=== PATIENT | female | born 1970 | race Caucasian/White ===

== ENCOUNTER 2021-09-13 01:08 | Day surgery (SDC) | payer OTHER, SELFPAY ==
[2021-09-01 13:44] VITALS: BMI 25.7
[2021-09-13 09:44] VITALS: BP 140/93; PULSE 111; RESP 16; TEMP 36.1; O2SAT 100; BMI 25.7
[2021-09-13] MEDS: LACTATED RINGERS 1,000 ML 150 ML IV CONT (09:51)
--- NOTE | 2021-09-13 10:24 | PM.HPGS ---
History of Present Illness History of Present Illness Consent: Risks, benefits, and alternatives have been discussed and questions answered. Patient agrees to proceed with procedure. Chief complaint: neoplasm screening Narrative: Masha Galicia is a 50 year old female here for first screening colonoscopy Review of Systems Constitutional: Constitutional: Denies headache(s) and Denies weakness Eyes: Eyes: Denies blurry vision ENT: Reports Normal hearing present, Denies headache(s) and Denies neck pain Cardiovascular: Cardiovascular: Denies chest pain and Denies dyspnea Respiratory: Respiratory: Denies dyspnea Gastrointestinal: Gastrointestinal: Reports no additional gastrointestinal complaints Genitourinary: Genitourinary: Denies dysuria Musculoskeletal: Musculoskeletal: Denies neck pain Integumentary/Breasts: Skin/Breast: Denies dry skin Neurologic: Reports Normal hearing present, Denies headache(s) and Denies weakness Psychiatric: Psychiatric: Denies anxiety Endocrine: Endocrine: Denies change in body appearance Hematologic/Lymphatic: Hematologic/Lymphatic: Denies easy bleeding Allergic/Immunologic: Allergic/Immunologic: Denies urticaria PMFSH Past Medical History Medical History Body mass index [BMI] 26.0-26.9, adult (07/13/16) Chronic GERD Depression Discoloration of skin of toe Dysfunction of both eustachian tubes DONOVAN (generalized anxiety disorder) History of alcohol abuse Impacted cerumen of right ear MDD (major depressive disorder), recurrent episode, moderate Menometrorrhagia Mood swings Nausea Night sweats RUQ abdominal pain Sleep apnea Snorings Tinnitus Family History Family History Grandparent Family history of throat cancer Other Family history of Alzheimer's disease Social History Social History (Updated 06/22/21 @ 10:28 by Jacqui Posadas) Social History: Smoking packs per day: 1 Smoking cigarettes per day: 20.0 Years smoked: 20 Smoking pack-years: 20.00 Smoking status: Current every day smoker Tobacco type: e-cigarettes/vaping Second hand tobacco smoke exposure: No Smoking end date: 03/20/12 Alcohol intake: current Drinks per week: 5 Alcohol use details: moderate amount Substance use: never Substance use type: does not use Living arrangements: with family Gender identity (if verbalized by the patient): Female Sexual Orientation (if Verbalized by the Patient): Straight or Heterosexual Spiritual care concerns: No Meds Home Medications and Allergies Home Medications Medication Instructions Recorded Confirmed Type biotin 1,000 mcg chewable tablet 1,000 mcg PO DAILY 09/01/21 09/01/21 History buspirone 5 mg tablet 5 mg PO BID PRN Anxiety 09/01/21 09/01/21 History multivitamin with minerals-folic 1 tablet PO DAILY 09/01/21 09/01/21 History acid 0.4 mg tablet Allergies Allergy/AdvReac Type Severity Reaction Status Date / Time No Known Allergies Allergy Verified 09/13/21 09:43 Vital Signs Vital Signs - 24 hr 09/13/21 09:44 Temperature 97 F L Pulse Rate 111 H Respiratory Rate 16 Blood Pressure 140/93 H Pulse Oximetry 100 Oxygen Delivery Room Air Exam Const: General: comfortable and no acute distress HENMT: General nose exam: Normal nares present Eyes: General: appearance normal, both eyes and all related structures Neck: Neck: no JVD Resp: Auscultation: clear to auscultation bilaterally Cardio: Rate: regular rate Rhythm: regular rhythm GI: Inspection: non-distended GI Palp: Yes Soft to palpation Skin: General skin exam: normal color Neuro: General: gait normal Speech: normal speech Extrem: General: normal to inspection Psych: Mental Status: mental status grossly normal Assessment and Plan Assessment and plan (1) Colon cancer screening: Code(s):
--- NOTE | 2021-09-13 10:28 | WPDANESEPPF ---
Anes - Initial Pre Proc Eval Procedure: Operation Date: 09/13/21 10:45 Proposed Procedures p Screening Colonoscopy - José Luis Soliz MD Date/Time: 09/13/21 10:28 Surgeon: José Luis Soliz MD Pre Op Diagnosis: neoplasm screening Patient Data Age: 50 Gender: F Height: 1.65 m Weight: 70.1 kg Last Vital Signs Temp 97 F L 09/13/21 09:44 Pulse 111 H 09/13/21 09:44 Resp 16 09/13/21 09:44 BP 140/93 H 09/13/21 09:44 Pulse Ox 100 09/13/21 09:44 O2 Del Method Room Air 09/13/21 09:44 Allergies Allergy/AdvReac Type Severity Reaction Status Date / Time No Known Allergies Allergy Verified 09/13/21 09:43 Home Medications Medication Instructions Recorded Confirmed Type biotin 1,000 mcg chewable tablet 1,000 mcg PO DAILY 09/01/21 09/01/21 History buspirone 5 mg tablet 5 mg PO BID PRN Anxiety 09/01/21 09/01/21 History multivitamin with minerals-folic 1 tablet PO DAILY 09/01/21 09/01/21 History acid 0.4 mg tablet Patient hx anesthesia problems: none Family hx anesthesia problems: none Results Review: All pre-operative results and documents have been reviewed as part of the pre-operative evaluation. [facility] Past Medical History Medical History Body mass index [BMI] 26.0-26.9, adult (07/13/16) Chronic GERD Depression Discoloration of skin of toe Dysfunction of both eustachian tubes DONOVAN (generalized anxiety disorder) History of alcohol abuse Impacted cerumen of right ear MDD (major depressive disorder), recurrent episode, moderate Menometrorrhagia Mood swings Nausea Night sweats RUQ abdominal pain Sleep apnea Snorings Tinnitus Family History Family History Grandparent Family history of throat cancer Other Family history of Alzheimer's disease Social History Social History (Updated 06/22/21 @ 10:28 by Jacqui Posadas) Social History: Smoking packs per day: 1 Smoking cigarettes per day: 20.0 Years smoked: 20 Smoking pack-years: 20.00 Smoking status: Current every day smoker Tobacco type: e-cigarettes/vaping Second hand tobacco smoke exposure: No Smoking end date: 03/20/12 Alcohol intake: current Drinks per week: 5 Alcohol use details: moderate amount Substance use: never Substance use type: does not use Living arrangements: with family Gender identity (if verbalized by the patient): Female Sexual Orientation (if Verbalized by the Patient): Straight or Heterosexual Spiritual care concerns: No Anes - Eval Final PreProcedure Day of Procedure 09/13/21 10:28 Patient weight: normal Heart: regular rate and rhythm Lungs: clear to auscultation Airway: Mallampati scale class II Neurological: alert and oriented Last oral intake: >/= 8 hours ASA classification: II Emergent: no Anesthetic plan: proceed Anesthesia type and monitoring: general GIVS and standard monitoring Results Review: All pre-operative results and documents have been reviewed as part of the pre-operative evaluation. Informed Consent: The patient's anesthetic plan and its attendant risks and benefits were discussed with the patient/family/POA. Questions were solicited and answers provided to the satisfaction of the patient/family/POA.
[2021-09-13 10:53] VITALS: BP 121/78; PULSE 96; RESP 17; O2SAT 100
[2021-09-13 11:03] VITALS: BP 131/85; PULSE 86; RESP 17; O2SAT 100
[2021-09-13 11:13] VITALS: BP 137/92; PULSE 83; RESP 15; O2SAT 100
== END 2021-09-13 11:17 | disposition home or self-care (01) ==
PROVIDERS: PCP Family Medicine; Visit Provider Internal Medicine Gastroenterology
PROC: 0DJD8ZZ Inspection of Lower Intestinal Tract, Via Natural or Artificial Opening Endoscopic (ICD-10-PCS; CPT 45378; principal; 2021-09-13 10:45)
DX: Z12.11 Encounter for screening for malignant neoplasm of colon (principal); D12.3 Benign neoplasm of transverse colon; D12.5 Benign neoplasm of sigmoid colon; K57.30 Diverticulosis of large intestine without perforation or abscess without bleeding; K64.8 Other hemorrhoids; F33.1 Major depressive disorder, recurrent, moderate; F41.1 Generalized anxiety disorder; F17.290 Nicotine dependence, other tobacco product, uncomplicated
CPT/HCPCS: 45385; 88305; J2704; J7120

== ENCOUNTER 2021-11-29 01:25 | Day surgery (SDC) | payer OTHER, SELFPAY ==
[2021-11-26 14:31] VITALS: BMI 24.2
--- NOTE | 2021-11-26 14:36 | PC.NURSE ---
Report to the Outpatient Waiting Room, entrance under the green pavilion located off [facility], at time _1000_ on date _[id number]_. OR Time: _1200_. Time changes happen often and if your time is changed the preop area will call you the afternoon before. - You and your visitor will be asked to self-screen and do not enter if you have any COVID symptoms. - Only one visitor and NO children visitors are allowed at this time. - The patient visitor is requested to leave or wait in car when not with patient due to restrictions. - A mask is required within the hospital. Patients may have clear liquids (water, carbonated beverages, clear teas, apple juice) until 3 hours prior to surgery with a maximum of 20 ounces. - No food from midnight until time of surgery Take the following medications with a SIP of water the morning of surgery: ___Clonazepam if needed. Medications to discontinue per physician ___Multivitamin and Biotin Date to take last dose__Stop today. Please no make-up, nail kenyan, hairspray, perfume, deodorant, or body powder the day of surgery. No jewelry (including any body piercings) or valuables the day of surgery, leave them at home. Please take a shower or bath the night before, or the morning of, surgery with an antibacterial soap. Wear comfortable, loose fitting clothing. - Jewelry must be removed prior to entering the operating room. Rings and piercings that are not removed may be cut off. - The hospital will not accept responsibility for valuables. - Please leave all valuables, including medications, at home the day of surgery. If you are going home after surgery, a licensed mobile lounge driver or operator must drive you home. - NO public transportation without another adult. - We recommend that an adult stay with you for 24 hours following discharge. - We also recommend that you do not drive, make important decision, drink alcoholic beverages, or take any drugs that were not prescribed by your health care provider for at least 24 hours after your discharge time. Follow any additional instructions given to you from your surgeon. If you or anyone in your household have experienced Covid symptoms in the past week, please notify your surgeon or the nurse liaison at the phone number below for possible testing. Telephone instructions given to _Patient___and asked if any additional questions and then verbalized understanding. Patient advised to call surgeon office or pre surgery nurse liaison [phone] if any additional questions.
[2021-11-29 10:30] VITALS: BP 119/74; PULSE 82; RESP 20; TEMP 36.5; O2SAT 97
[2021-11-29] MEDS: ACETAMINOPHEN 500 MG TABLET 1000 MG PO (10:48)
[2021-11-29] MEDS: LACTATED RINGERS 1,000 ML 30 ML IV CONT ×2 (10:55→12:53)
--- NOTE | 2021-11-29 11:21 | WPDANESEPPF ---
Anes - Initial Pre Proc Eval Procedure: Operation Date: 11/29/21 12:00 Proposed Procedures p Hysteroscopy, with Eleanor Endometrial Ablation - Jeannette Mijares MD Date/Time: 11/29/21 11:21 Surgeon: Jeannette Mijares MD Pre Op Diagnosis: menometrorrhagia Patient Data Age: 51 Gender: F Height: 1.68 m Weight: 68.5 kg Last Vital Signs Temp 36.5 C 11/29/21 10:30 Pulse 82 11/29/21 10:30 Resp 20 11/29/21 10:30 BP 119/74 11/29/21 10:30 Pulse Ox 97 11/29/21 10:30 O2 Del Method Room Air 11/29/21 10:30 Allergies Allergy/AdvReac Type Severity Reaction Status Date / Time No Known Allergies Allergy Verified 11/26/21 14:30 Home Medications Medication Instructions Recorded Confirmed Type biotin 1,000 mcg chewable tablet 1,000 mcg PO DAILY 09/01/21 11/29/21 History buspirone 5 mg tablet 5 mg PO BID PRN Anxiety 09/01/21 11/26/21 History multivitamin with minerals-folic 1 tablet PO DAILY 09/01/21 11/29/21 History acid 0.4 mg tablet Patient hx anesthesia problems: none Family hx anesthesia problems: none Results Review: All pre-operative results and documents have been reviewed as part of the pre-operative evaluation. [facility] Past Medical History Medical History (Updated 06/22/21 @ 11:43 by Jacqui Landa NP) Body mass index [BMI] 26.0-26.9, adult (07/13/16) Chronic GERD Depression Discoloration of skin of toe Dysfunction of both eustachian tubes DONOVAN (generalized anxiety disorder) History of alcohol abuse Impacted cerumen of right ear MDD (major depressive disorder), recurrent episode, moderate Menometrorrhagia Mood swings Nausea Night sweats RUQ abdominal pain Sleep apnea Snorings Tinnitus Surgical History Surgical History (Updated 11/29/21 @ 11:26 by Chuy Joe MD) H/O arthroscopic knee surgery H/O colonoscopy History of section Family History Family History Grandparent Family history of throat cancer Other Family history of Alzheimer's disease Social History Social History Social History: Smoking packs per day: 1 Smoking cigarettes per day: 20.0 Years smoked: 15 Smoking pack-years: 15.00 Smoking status: Former smoker Tobacco type: e-cigarettes/vaping Second hand tobacco smoke exposure: No Smoking end date: 11/26/13 Alcohol intake: current Drinks per week: 7 Alcohol use details: moderate amount Substance use: never Substance use type: does not use Living arrangements: with family Gender identity (if verbalized by the patient): Female Sexual Orientation (if Verbalized by the Patient): Straight or Heterosexual Spiritual care concerns: No Anes - Eval Final PreProcedure Day of Procedure 11/29/21 11:21 Patient weight: normal Heart: regular rate and rhythm Lungs: clear to auscultation Airway: Mallampati scale class II Neurological: alert and oriented Last oral intake: >/= 8 hours ASA classification: II Emergent: no Anesthetic plan: proceed Anesthesia type and monitoring: general GIVS and standard monitoring Results Review: All pre-operative results and documents have been reviewed as part of the pre-operative evaluation. Informed Consent: The patient's anesthetic plan and its attendant risks and benefits were discussed with the patient/family/POA. Questions were solicited and answers provided to the satisfaction of the patient/family/POA.
--- NOTE | 2021-11-29 11:52 | PM.IMHP ---
H&P: HPI History of Present Illness Date/Time: 11/29/21 11:52 Chief Complaint: menometrorrhagia Narrative: Deidre is a 51yo who presents for HSC and endometrial ablation. She has had menometrorrhagia for years. EMB last january was benign. after a d and C had irritated vagina, though she tolerated betadine with her EMB. Review of Systems Review of Systems: All systems reviewed & are unremarkable except as noted in HPI and below PMFSH Past Medical History Medical History (Updated 11/29/21 @ 11:54 by Jeannette Mijares MD) Body mass index [BMI] 26.0-26.9, adult (07/13/16) Chronic GERD Depression Discoloration of skin of toe Dysfunction of both eustachian tubes DONOVAN (generalized anxiety disorder) History of alcohol abuse Impacted cerumen of right ear MDD (major depressive disorder), recurrent episode, moderate Menometrorrhagia Mood swings Nausea Night sweats RUQ abdominal pain Sleep apnea Snorings Tinnitus Surgical History Surgical History (Updated 11/29/21 @ 11:26 by Chuy Joe MD) H/O arthroscopic knee surgery H/O colonoscopy History of section Family History Family History Grandparent Family history of throat cancer Other Family history of Alzheimer's disease Social History Social History Social History: Smoking packs per day: 1 Smoking cigarettes per day: 20.0 Years smoked: 15 Smoking pack-years: 15.00 Smoking status: Former smoker Tobacco type: e-cigarettes/vaping Second hand tobacco smoke exposure: No Smoking end date: 11/26/13 Alcohol intake: current Drinks per week: 7 Alcohol use details: moderate amount Substance use: never Substance use type: does not use Living arrangements: with family Gender identity (if verbalized by the patient): Female Sexual Orientation (if Verbalized by the Patient): Straight or Heterosexual Spiritual care concerns: No Meds Home Medications and Allergies Home Medications Medication Instructions Recorded Confirmed Type biotin 1,000 mcg chewable tablet 1,000 mcg PO DAILY 09/01/21 11/29/21 History buspirone 5 mg tablet 5 mg PO BID PRN Anxiety 09/01/21 11/26/21 History multivitamin with minerals-folic 1 tablet PO DAILY 09/01/21 11/29/21 History acid 0.4 mg tablet Allergies Allergy/AdvReac Type Severity Reaction Status Date / Time No Known Allergies Allergy Verified 11/26/21 14:30 Vital Signs Vital Signs - 24 hr 11/29/21 10:30 Temperature 97.7 F Pulse Rate 82 Respiratory Rate 20 Blood Pressure 119/74 Pulse Oximetry 97 Oxygen Delivery Room Air Exam Const: General: no acute distress Resp: Effort & Inspection: normal respiratory effort Auscultation: clear to auscultation bilaterally Cardio: Rate: regular rate Rhythm: regular rhythm GI: GI Palp: Yes Soft to palpation Extrem: General: normal to inspection Assessment and Plan Assessment and plan (1) Menometrorrhagia: Code(s): N92.1 - Excessive and frequent menstruation with irregular cycle Status: Acute Plan will proceed with HSC and endometrial ablation. consented to RBA, questions answered will irrigate vagina after to prevent prior irritation.
--- NOTE | 2021-11-29 11:55 | WPDHPUPDATE1 ---
History and Physical Update Update Date/Time: 11/29/21 11:55 History and Physical has been reviewed, including an updated exam of the patient. There are NO changes in the patient's condition. Risks, benefits, and alternatives have been discussed and questions answered. Patient agrees to proceed with procedure.
[2021-11-29] MEDS: BUPIVACAINE/EPINEPHRINE 0.25% 50 ML VIAL 10 ML INFILTRATE (12:24)
--- NOTE | 2021-11-29 12:52 | P.OP_ITS ---
Procedure Note - Detailed Date of Procedure 11/29/21 Pre-op Diagnosis menometrorrhagia Post-op Diagnosis Same Procedure Performed hysteroscopy, attempted eleanor endometrial ablation Surgeon Jeannette Mijares MD Double Ending Machine Operator none Anesthesia MAC and Local Indications menorrhagia and/or menometrorrhagia Findings Uterus sounded to 8cm. Cervix was 4.5cm, giving cavity length of 3.5cm. Cavity width was just under 4cm. Device was unable to open fully in her small uterus and we were thus unable to get a seal at the internal os. The endometrial ablation was terminated. Description of Procedure The patient was taken to the operating room and placed in supine position. She received MAC anesthesia and was placed in dorsal lithotomy position in [facility]. A speculum was placed and the anterior lip of the cervix was grasped with a single tooth tenaculum. A paracervical block of 10cc of 0.25% marcaine with epinephrine was done. The cervix sounded to 8cm and the cervix was 4.5cm long, giving a uterine cavity length of 3.5cm. The Eleanor device was set to 4cm. The cervix was sequentially dilated to an 8 Kinjal. The hysteroscope was inserted and the cavity visualized and appeared to be normal, though narrow. The scope was removed and the Eleanor device inserted through the cervix easily. The width of the uterine cavity was just at or below 4cm. The balloon was inflated to attain a cervical seal, but this was not successful despite multiple attempts at inflating the balloon. The device was removed. The hysteroscope was reinserted and the cavity appeared normal. No uterine perforations were noted. The scope was once again removed. The tenaculum was removed and the cervix was made hemostatic with pressure. The speculum was removed. The patient was awakened from anesthesia and taken to the recovery room in stable condition. Fluid deficit 190cc. Estimated Blood Loss 10 Drains No Packing No Pathology None sent Complications No immediate complications Condition Stable Disposition Same day
[2021-11-29 12:53] VITALS: BP 105/63; PULSE 90; RESP 16; O2SAT 100
--- NOTE | 2021-11-29 12:55 | SUR.OPER ---
all rings checked post op and intact.
[2021-11-29 13:15] VITALS: BP 138/86; PULSE 78; RESP 16; O2SAT 99
[2021-11-29 13:45] VITALS: BP 130/84; PULSE 67; RESP 16
== END 2021-11-29 14:02 | disposition home or self-care (01) ==
PROVIDERS: PCP Family Medicine; Visit Provider Obstetrics & Gynecology
PROC: 0U5B8ZZ Destruction of Endometrium, Via Natural or Artificial Opening Endoscopic (ICD-10-PCS; CPT 58563; principal; 2021-11-29 12:00)
DX: N92.1 Excessive and frequent menstruation with irregular cycle (principal); F41.1 Generalized anxiety disorder; F33.1 Major depressive disorder, recurrent, moderate; Z87.891 Personal history of nicotine dependence
CPT/HCPCS: 58563; A9270; J1100; J2250; J2405; J2704; J3010; J7030; J7120

== ENCOUNTER 2024-06-22 08:28 | Outpatient (CLI) | payer BC, SELFPAY ==
--- NOTE | ~2024-06-22 | US_ITS ---
Abdominal Sonogram: Real-time sonographic imaging of the abdomen was performed. Clinical History: Abnormal findings of blood chemistry Findings: The liver appears echogenic, with no evidence of mass lesion or bile duct dilatation. Main portal vein demonstrates normal direction of flow. The spleen is normal in size without evidence of focal lesion. The gallbladder is well distended, and appears normal with no evidence of gallstone or wall thickening. The common bile duct measures 3 mm. The visualized pancreas, aorta, and IVC are un remarkable. The right kidney measures 12.8 cm in length and the left kidney measures 11.6 cm. There is no hydronephrosis or renal calculus. Impression: Diffuse fatty infiltration of the liver. Reviewed, dictated and finalized at location M. Impression: Diffuse fatty infiltration of the liver.
== END 2024-06-22 08:29 | disposition home or self-care (01) ==
PROVIDERS: PCP Family Medicine; Visit Provider Physician Assistant
DX: R79.89 Other specified abnormal findings of blood chemistry (principal); K76.0 Fatty (change of) liver, not elsewhere classified
CPT/HCPCS: 76700

== ENCOUNTER 2024-07-09 13:31 | Outpatient (CLI) | payer BC, SELFPAY ==
--- NOTE | ~2024-07-09 | MM_ITS ---
EXAMINATION: MM screening tho BI w romelia HISTORY: Screening TECHNIQUE: Craniocaudal and mediolateral oblique 3-D tomosynthesis images were obtained and synthetic 2-D images were generated. CAD analysis was submitted and interpreted. COMPARISON: Comparison to multiple prior studies sequentially, with oldest reviewed study dated 12/20. BREAST PARENCHYMAL COMPOSITION: Dense: The breasts are extremely dense, which lowers the sensitivity of mammography. FINDINGS: There is no evidence of suspicious mass, calcification, or architectural distortion to sugg est malignancy in either breast. There has been no suspicious interval change. IMPRESSION: 1. No mammographic evidence of malignancy. 2. Recommend routine screening mammography in one year. BI-RADS Category 1: Negative Reviewed, dictated and finalized at location A.
== END 2024-07-09 13:32 | disposition home or self-care (01) ==
LOC: MICIMG 13:31
PROVIDERS: PCP Family Medicine; Visit Provider Physician Assistant
DX: Z12.31 Encounter for screening mammogram for malignant neoplasm of breast (principal)
CPT/HCPCS: 77063; 77067

== ENCOUNTER 2025-01-27 00:25 | Day surgery (SDC) | payer BC, OTHER, SELFPAY ==
[2024-07-16 13:39] VITALS: BMI 27.9
--- OUTSIDE RECORDS SUMMARY | 2024-07-26 00:27 | XMS_ITS | Data Portability ---
Author Organization [facility] [place] Address [address] [place] [address] Care Team Providers Care Executive Casino Host Name Role Phone ELIZABETH BRADLEY Primary Care Provider Assessment Encounter Date Assessment Date Assessment LastModified by Organization Details LastModified Time 02/10/2021 02/10/2021 EMB done, will call with results continue iron for anemia. DIscussed US results- no clear etiology of bleeding. likely anovulatory bleeding. if episodes continue, may discuss options of mirena vs ablation. would avoid estrogen with her relatively uncontrolled hypertension. [email or web address] Not available 02/10/2021 17:16:06 09/15/2021 09/15/2021 healthy female exam patient declines std testing pap due 2023 mammogram ordered and encouraged discussed mgt options for bleeding. already had benign EMB. desires ablation after summer. The indications, risks, and benefits and alternatives to surgery were discussed with the patient. I explained that the risks include, but are not limited to: bleeding and possible need for transfusion, infection, damage to adjacent structures including the bladder, ureters, bowel, or major vessels, need for additional surgery, and risks from anesthesia. I explained that there is also a chance that the symptoms may not improve after surgical intervention. She voices understanding and wishes to proceed. Will schedule in Nov. Will do in OR due to difficult time with EMB in office. FU 1 year or prn [email or web address] Not available 09/15/2021 13:27:33 11/26/2021 11/26/2021 Again discussed RBA of ablation, consented discussed procedure, recovery describes irritation of vagina after last procedure, did tolerate betadine at EMB. will irrigate vagina after procedure. strongly encouraged to schedule mammo [email or web address] Not available 11/26/2021 14:01:05 Plan of Treatment Reminders Order Date Submit Date Provider Last Modified By Organization Details Last Modified Time Details Appointments None recorded. Lab None recorded. Referral None recorded. Procedures None recorded. Surgeries hysteroscop y, with endometrial ablation (SURG) 2021 022 [facility] Surgery [place], [address], [place], [address], 14:19:00 Imaging US, pelvis 2020 [address], [address], [place], [address], 11:42:28 US, transvagina l [address], [address], [place], [address], 11:42:29 Medication Orders None recorded. Patient TargetsNo targets recorded. Patient InstructionsNo instructions recorded. Reason for Referral None Reported. Results Created Date Observation Date Name Description Value Unit Range Abnormal Flag Note LastModifiedBy Organization Detail LastModifiedTime 02/11/20 21 02/10/2021 SURGI [facility] PATHO LOGY surgical pathology SEE RESULT S BELOW CASE REPOR T: Surgi evan Patho logy Repor t Case: [id number] Autho kyle condon Provi joseph: Jeannette Combs MD Colle cted: 02/10 1644 Order ing Locat ion: [place] [facility] Recei danielle: 02/11 1030 Patho logis t: Osvaldo Carey MD Speci men: Endom etriu m, endom etriu m FINAL DIAGN OSIS: Endom etriu m, biops y: -Few fragm ents of endoc ervic al and ectoc ervic al tissu e witho ut diagn ostic abnor malit y. -No endom etria l tissu e prese nt for exami natio n. Elect dylan rodriguez by Osvaldo Carey MD on 02/12 at 2:35 PM ----- ----- ----- ----- ----- ----- ----- ----- ----- ----- ----- ----- ----- ----- ----- ----- ----- ---- CLINI EVAN INFOR MATIO N: not provi ded MICRO SCOPI C DESCR IPTIO N: A micro scopi c exami natio n was perfo rmed. GROSS DESCR IPTIO N: A. Daniel pérez. The speci men is label ed with the patie nt's name, bessie sin cs and EMB . Recei danielle in forma linda is a 2.0 x 2.0 x 0.2 [address] of mucus and dark red tissu e. The entir e speci men is submi tted in one casse tte. Gross ed by Giana jon Not Available [facility] (Lab) [address], [place], [address], 02/12/2021 15:37:05 02/02/20 21 02/01/2021 US, pelvi s No observ ation record ed. [email or web address] [place] [address], [place], [address], 02/01/2021 11:13:21 02/02/20 21 02/01/2021 US, trans vagin al No observ ation record ed. [email or web address] [place] [address], [place], [address], 02/01/2021 11:13:10 02/02/20 21 02/01/2021 US, pelvi s No observ ation record ed. bernadette Ramos [address], [place], [address], 02/10/2021 19:06:57 Result Notes None recorded. Problems Name Problem SNOMED Code Status Onset Date Resolution Date Notes Provider Name and Address Organization Details Recorded Time Dysfunct ional uterine bleeding Completed 201205/27/2020 Other disorder s of menstrua tion and other abnormal bleeding from female genital tract;Re corded Elsewher e: No Locat ion: [facility] S ource: EHR Sew[employer] Line Baler mario alberto: N Practi ce ID: 0001 Max lable Time: 08:15:00 AM Dasha Gary [facility], [facility] 15:40:45 Speciali zed medical examinat ion Completed 201005/27/2020 Routine gynecolo gical examinat ion;Prac luciana ID: 0001 Dasha Gary [facility] 15:41:34 Screenin g for malignan t neoplasm of cervix Completed 201005/27/2020 Pap Smear;Pr actice ID: 0001 Dasha Gary [facility], [facility] 15:41:19 Menstrua tion finding Completed 201105/27/2020 Menorrha emma Excessiv e Menstrua tion;Pra ctice ID: 0001 Dasha Gary [facility], [facility] 15:40:52 Insertio n of intraute rine contrace ptive device Completed 201105/27/2020 INSERTIO N OF IUD;Prac luciana ID: 0001 Dasha Gary [facility], [facility] 15:40:50 Pregnanc y test negative [id number] Completed 201205/27/2020 Negative Pregnanc y Test;Pra ctice ID: 0001 Dasha tan, [facility] 15:40:56 Anemia 587538678 Active 2012 Anemia, unspecif ied;Prac luciana ID: 0001 Not Available [facility] 12/21/202 0 17:25:14 Premenop ausal menorrha emma Completed 201205/27/2020 Premenop ausal menorrha emma;Prac luciana ID: 0001 Dasha tan, [facility] 15:41:16 Stenosis of cervix 25354838 Completed 201205/27/2020 Strictur e and stenosis of cervix;P ractice ID: 0001 Dasha tan, [facility] 15:41:31 Vaginiti s and vulvovag initis Completed 201205/27/2020 Vaginiti s and vulvovag initis, unspecif ied;Prac luciana ID: 0001 Dasha tan, [facility] 15:41:[address] Concept Completed 201805/27/2020 Encntr for disability rater exam (general ) (routine ) w/o abn findings ;Recorde d Elsewher e: No Locat ion: [facility] S ource: EHR [employer] mario alberto: N Pauline ce ID: 0001 Max lable Time: 08:30:00 AM Dasha Gary [facility] 15:41:27 Speciali zed medical examinat ion Completed 201112/08/2011 Gynecolo gical Examinat ion;Brennan rded Elsewher e: No Locat ion: [facility] S ource: E[facility] [employer] mario alberto: N Pauline ce ID: 0001 Max lable Time: 02:30:00 PM Dasha Gary [facility] 15:41:34 Pregnanc y test negative [id number] Completed 201101/03/2012 Pregnanc y examinat ion or test, negative result;R ecorded Elsewher e: No Locat ion: [facility] S ource: EHR [employer] mario alberto: N Pauline ce ID: 0001 Max lable Time: 02:00:00 PM Dasha tan, [facility] 15:40:56 Screenin g for malignan t neoplasm of rectum Completed 201505/27/2020 Encounte r for screenin g for malignan t neoplasm of rectum;R ecorded Elsewher e: No Locat ion: [facility] S ource: EHR [employer] mario alberto: N Roxanneti ce ID: 0001 Max lable Time: 09:45:00 AM Dasha tan, [facility] 15:41:[address] Concept Completed 201505/27/2020 Anxiety disorder , unspecif ied;Brennan rded Elsewher e: No Locat ion: [facility] S ource: EHR [employer] mario alberto: N Roxanneti ce ID: 0001 Max lable Time: 09:45:00 AM Dasha Gary [facility], [facility] 15:41:[address] Concept Completed 201505/27/2020 Encntr for general adult medical exam w/o abnormal findings ;Recorde d Elsewher e: No Locat ion: [facility] S ource: EHR [employer] mario alberto: N Roxanneti ce ID: 0001 Max lable Time: 09:45:00 AM Dasha tan [facility] 15:41:25 Evaluati on finding Completed 201705/27/2020 Hematuri a, unspecif ied;Brennan rded Elsewher e: No Locat ion: [facility] S ource: [facility] mario alberto: N Roxanneti ce ID: 0001 Max lable Time: 10:30:00 AM Dasha tan [facility] 15:40:48 Adult health examinat ion Completed 201305/27/2020 ROUTINE MEDICAL EXAM;Rec orded Elsewher e: No Locat ion: Rabia foley [facility] S ource: EHR [employer] mario alberto: N Practi ce ID: 0001 Max lable Time: 10:30:00 AM Dasha tan [facility] 15:40:25 Urinary tract infectio us disease 46630088 Completed 201405/27/2020 Urinary tract infectio n, site not specifie d;Record ed Elsewher e: No [facility]at [facility] N Practi ce ID: 0001 Max lable Time: 01:15:00 PM Dasha tan [facility] 15:41:38 Screenin g for malignan t neoplasm of cervix Completed 201112/08/2011 Screenin g for malignan t neoplasm s of the cervix;R ecorded Elsewher e: No [facility]at [facility] N Practi ce ID: 0001 Max lable Time: 02:30:00 PM Dasha tan [facility] 15:41:19 Syphilis test finding 734112076 Completed 201805/27/2020 Encounte r for STD screenin g;Record ed Elsewher e: No [facility]: N Practi ce ID: 0001 Max lable Time: 02:30:00 PM Dasha tan [facility] 15:41:36 Alopecia 44977442 Completed 201301/20/2021 Hair loss disorder ;Recorde d Elsewher e: No Locat ion: [facility]: N Practi ce ID: 0001 Max lable Time: 10:30:00 AM Jeannette Mijares MD [address], [place], [address], [place] [facility] 14:32:45 Anxiety 53249819 Active 2020 Dasha tan [facility] 15:41:49 Herpes simplex 97786147 Active 2020 Dahsa tan [facility] 15:41:54 Problem Notes None recorded. Procedures Surgical History Date Name Laterality Status Provider Name and Address Organization Details Recorded Time 11/30/19 22 HYSTEROSCOPY, WITH ENDOMETRIAL ABLATION (SURG) completed Virginia Rodriguez [facility] 11/30/2021 10:58:48 09/14/19 22 Date of Last Colonoscopy completed Lexii Mei [facility] 09/15/2021 12:34:37 02/11/20 21 Endometrial Biopsy completed Jeannette Mijares MD [facility] [address], [place], [address], [facility] 02/10/2021 17:14:26 05/28/19 21 Date of Last Pap Smear completed Dasha Gary [facility] 05/27/2020 15:42:16 03/20/19 14 Knee arthroscopy/surg home completed Dasha Gary [facility] 05/27/2020 09:14:18 03/20/19 13 Hysteroscopy completed Dasha Gary [facility] 05/27/2020 09:13:47 10/21/19 05 section completed Dasha Gary [facility] 05/27/2020 15:45:40 03/20/19 05 ligation of bilateral fallopian tubes completed Dasha Gary [facility] 05/27/2020 09:13:26 05/05/19 03 section completed Dasha Gary [facility] 05/27/2020 15:45:51 Imaging Results Imaging Date Name Status LastModified by Organization Details LastModified Time 02/01/2021 US, pelvis completed [email or web address] [place] [address], [place], [address], 02/01/2021 11:13:21 02/01/2021 US, transvaginal completed [email or web address] [facility] [address], [place], [address], 02/01/2021 11:13:10 02/01/2021 US, pelvis completed [email or web address] Rachel [address], [place], [address], 02/10/2021 19:06:57 Procedure Notes None recorded. Medical Equipment None Reported. Allergies No known drug allergies Medications Name Sig Start Date Stop Date Status Note LastModified by Organization Details LastModified Time buspirone 5 mg tablet TAKE 1 TABLET BY MOUTH TWICE DAILY 09/15 completed Not Available Not Available Not Available metronida zole 0.75 % (37.5 mg/5 gram) vaginal gel INSERT 1 APPLICAT ORFUL VAGINALL Y ONCE DAILY AT BEDTIME FOR 5 DAYS 01/20 completed Not Available Not Available Not Available Zithromax Z-Dariel 250 mg tablet take 2 tablet (500MG) by oral route every day for 1 day then 1 tablet (250 mg) by oral route once daily for 4 days 01/12 completed Prescrib ed Elsewher e: No Locat ion: Rabia f[facility] Pooja odify By: elly Encount er DateTime : 01/09/20 13 11:35:02 AM Not Available Not Available Not Available Macrobid 100 mg capsule take 1 capsule by oral route every 12 hours with food 06/08 completed Prescrib ed Elsewher e: No [facility] [place] P[facility] odify By: jamie Lai r DateTime : 02/05/20 01:15:00 PM Not Available Not Available Not Available terbinafi ne HCl 250 mg tablet TK 1 T PO D 05/27 completed Not Available Not Available Not Available Zoloft 50 mg tablet take 1 tablet by oral route every day 06/082019 completed Prescrib ed Elsewher e: No Locat ion: [facility] odify By: jamie Lai r DateTime : 02/05/20 15 01:15:00 PM Not Available Not Available Not Available Prozac 20 mg capsule take 1 capsule (20MG) by oral route every day in the morning 02/20 completed Prescrib ed Elsewher e: No Locat ion: [facility] odify By: citlaly crane DateTime : 02/21/20 13 09:32:49 AM Not Available Not Available Not Available Cipro 500 mg tablet take 1 tablet by oral route every 12 hours 06/08 completed Prescrib ed Elsewher e: No Locat ion: [facility] odify By: jamie Lai r DateTime : 07/04/19 18 10:30:00 AM Not Available Not Available Not Available buspirone 7.5 mg tablet take 1 tablet by oral route 2 times every day 05/27 completed Prescrib ed Elsewher e: No Locat ion: [facility] odify By: [email or web address] ndt Enco unter DateTime : 06/09/19 19 08:30:00 AM Not Available Not Available Not Available hydroxyzi ne HCl 25 mg tablet TAKE 1 TABLET BY MOUTH TWICE DAILY NEEDED FOR NAUSEA OR VOMITING 09/15 completed Not Available Not Available Not Available Paxil 10 mg tablet take 1 tablet by oral route every day 02/20 completed Prescrib ed Elsewher e: No Locat ion: [facility] odify By: kristina Foley ncounter DateTime : 02/20/20 13 01:30:00 PM Not Available Not Available Not Available multivita min capsule take 1 capsule by oral route every day 05/27 completed Prescrib ed Elsewher e: Yes Loca tion: [facility] odify By: citlaly crane DateTime : 02/21/20 14 10:30:00 AM Not Available Not Available Not Available Poly-Iron 150 mg iron capsule TAKE 1 CAPSULE BY MOUTH EVERY DAY 09/15 completed Not Available Not Available Not Available 04/08 (28) 1 mg-20 mcg (21)/75 mg (7) tablet 05/27 completed Not Available Not Available Not Available hydroxyzi ne HCl 05/27 completed Not Available Not Available Not Available Lysteda 650 mg tablet take 2 tablet (1300MG) by oral route 3 times every day during menses 02/20 completed Prescrib ed Elsewher e: No Locat ion: [facility] odify By: citlaly crane DateTime : 08/08/19 13 10:00:00 AM Not Available Not Available Not Available Linzess 290 mcg capsule TAKE 1 CAPSULE BY MOUTH DAILY 09/15 completed Not Available Not Available Not Available biotin 1 mg capsule 09/15 completed Prescrib ed Elsewher e: Yes Loca tion: [facility] odify By: citlaly crane DateTime : 02/21/20 14 10:30:00 AM Not Available Not Available Not Available BinaxNOW COVID-19 Ag Self Test kit TEST DIRECTED 09/15 completed Not Available Not Available Not Available Vitals Date Recorded Body height Body mass index (BMI) Body weight Systolic blood pressure Diastolic blood pressure Systolic blood pressure Diastolic blood pressure Provider Name and Address Organization Details Last Updated DateTime 1 166.37 cm 26.5 kg/m2 21262.9 6 g 150 mm[Hg] 90 mm[Hg] 138 mm[Hg] 80 mm[Hg] [facility] 1 14:52:37 Date Recorded Body height Body mass index (BMI) Body weight Systolic blood pressure Diastolic blood pressure Provider Name and Address Organization Details Last Updated DateTime 09/15/2021 166.37 cm 25.1 kg/m2 12296.63 g 114 mm[Hg] 76 mm[Hg] [facility] 2 12:33:42 Date Recorded Body height Body mass index (BMI) Body weight Systolic blood pressure Diastolic blood pressure Provider Name and Address Organization Details Last Updated DateTime 11/26/2021 166.37 cm 24.6 kg/m2 56455.86 g 138 mm[Hg] 88 mm[Hg] Lexii Mei [facility] 10:31:02 Social History Question Answer Notes LastModified by Organizat ion Details LastModified Time Do You Have An Advance Directive? No [email or web address] Information n ot available 05/27/2020 What Is Your Level Of Alcohol Consumption? Occasional [email or web address] Information not available 05/27/2020 If You Are , What Was Your Level Of Alcohol Consumption Prior To ? None [email or web address] Information not available 11/26/2021 How Many Years Have You Consumed Alcohol? 25 [email or web address] Information not available 05/27/2020 Are You Blind Or Do You Have Difficulty Seeing? No [email or web address] Information n ot available 05/27/2020 What Is Your Level Of Caffeine Consumption? Occasional [email or web address] Information not available 05/27/2020 In The 14 Days Before Symptom Onset, Have You Had Close Contact With A Laboratory-confirm ed COVID-19 While That Case Was Ill? No [email or web address] Information n ot available 05/27/2020 In The 14 Days Before Symptom Onset, Have You Had Close Contact With A Person Who Is Under Investigation For COVID-19 While That Person Was Ill? No [email or web address] Information not available 05/27/2020 Have You Been To An Area Known To Be High Risk For COVID-19? No [email or web address] Information not available 05/27/2020 Are You Deaf Or Do You Have Serious Difficulty Hearing? No [email or web address] Information not available 05/27/2020 What Type Of Diet Are You Following? REGULAR [email or web address] Information n ot available 05/27/2020 What Is The Highest Grade Or Level Of School You Have Completed Or The Highest Degree You Have Received? 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 No [email or web address] Information not available 05/27/2020 Have You Ever Been Counseled For Unhealthy Alcohol Use? No [email or web address] Information not available 11/26/2021 Do You Use Protection During Sex? No [email or web address] Information not available 05/27/2020 Do You Use Your Seat Belt Or Car Seat Routinely? Yes Information not available 05/27/2020 Do You Have Smoke And Carbon Monoxide Detectors In Your Home? Yes [email or web address] Information not available 05/27/2020 How Much Tobacco Do You Smoke? No [email or web address] Information not available 05/27/2020 Do You Feel Stressed (tense, Restless, Nervous, Or Anxious, Or Unable To Sleep At Night)? [id number] [email or web address] Information not available 05/27/2020 Do You Use Any Illicit Or Recreational Drugs? No [email or web address] Information not available 05/27/2020 Do You Use Sunscreen Routinely? No [email or web address] Information not available 05/27/2020 Has Tobacco Cessation Counseling Been Provided? No [email or web address] Information not available 11/26/2021 Have You Used IV Drugs? No [email or web address] Information not available 05/27/2020 Do You Or Have You Ever Used Any Other Forms Of Tobacco Or Nicotine? No [email or web address] Information not available 11/26/2021 Sex: Unknown Functional Status Question Answer Note LastModified by Organizat ion Details LastModified Time Are you able to walk? YESWOREST [email or web address] Information not available 05/27/2020 What is your exercise level? Occasional [email or web address] Information not available 05/27/2020 Mental Status None recorded. Family History Relationship Description Onset Age of this Age Resolved Age Notes LastModified by Organization Details LastModified Time Paternal Grandfather Diabetes mellitus Not available 05/27 09:12:16 Paternal Grandfather Alcoholism [email or web address] Not available 0 11/26/2021 10:25:13 Mother Back problem [email or web address] Not avai lable 11/26/2021 10:25:13 Notes:Mother: back problems Paternal grandfather: Alcoholism Paternal grandmother: Diabetes mellitus Medical History Condition Response Anxiety Disorder Y History of STI Y Anemia Y Dermatologic Disorders Y Gynecological History Statement/Question Response Date of Last Mammogram Date of LMP 11/01/2021 N On BCP's at Conception? N STIs/STDs Y Was last menstrual period normal Y HPV Vaccine N Duration of Flow (days) 7 Current Control Method Tubal Ligat ion Age at First Child 31 Date of control 05/26/2020 Date of Last Colonoscopy 09/13/2021 Frequency of Cycle (Q days) 19 Sexually Active? Y N/A Age of first menstrual cycle 16 Date of Last Pap Smear 05/27/2020 Sexual Problems? N LMP Approximate Desired Control Method N/A N Obstetrics History GPAL:G 2 P 2 0 0 2 Type Value Full Term 2 Living 2 Total 2 Past Encounters Encounter ID Performer Location Encounter Start Date Encounter Closed Date Diagnosis/Indication Diagnosis SNOMED-CT Code Diagnosis ICD10 Code Diagnosis Note [id number] Linda FoleyEde Smith CNM [place] [address],[place] [address] 05/27/2020 15:24:05 05/27/2020 16:28:59 Gynecologic examination 38036883 Z01.419 [id number] Jeannette Mijares MD [place] [address],[place] [address] 01/20/2021 14:19:33 01/22/2021 12:01:33 Menometrorrhagia 469383125 N92.1 Anemia 155233009 D64.9 Essential hypertension 24900472 I10 [id number] Jeannette Mijares MD [place] [address],[place] [address] 02/01/2021 10:26:54 02/01/2021 11:42:28 Menometrorrhagia 597878607 N92.1 [id number] Jeannette Mijares MD [place] [address],[place] [address] 02/10/2021 14:26:32 02/15/2021 13:13:39 Menometrorrhagia 888955061 N92.1 Anemia due to chronic blood loss 232469036 D50.0 [id number] Jeannette Mijares MD [place] [address] [place] [address] 09/15/2021 12:25:17 09/15/2021 14:06:37 Gynecologic examination 31342074 Z01.419 Menometrorrhagia 0525493 08 N92.1 [id number] Jeannette Mijares MD [place] [address],[place] [address] 11/26/2021 10:25:00 11/26/2021 14:11:09 Menometrorrhagia 816198411 N92.1 Preoperative state 41808 002 Z78.9 Health Concerns Section Related Observation LastModified by Organization Detai ls LastModified Time None Recorded Concern Status LastModified by Organization Details LastModified Time None Recorded Advance Directives Directive N: Payers Encounter Date Sequence Insurance Name Policy Number Policy Tracy Covered Member ID Tracy Member ID Guarantor Name 02/01/2021 1 [facility] (O) [id number] Dimitrios Kayla Galicia [id number] Masha Ba Frida 02/10/2021 1 [facility] (O) [id number] Dimitrios Galicia [id number] Masha Ba Frida 09/15/2021 1 [facility] (O) [id number] Dimitrios Kayla Galicia [phone] Masha Ba Frida 11/26/2021 1 [facility] (O) [id number] Dimitrios Kayla Galicia [id number] Masha Ba Frida Notes Date Note Type Note Provider Name and Address Organization Details Recorded Time 02/10/2021 text/html Here for FU menometrorrhagia and anemia. ON iron. PCP records reviewed- Hgb was 9.7. US showed heterogeneous uterus, normal ovaries. EE only 5mm. No further long episodes of bleeding. Jeannette Mijares MD [address], [place], [address], [facility] 02/10/2021 17:16:23 09/15/2021 text/html Patient is a 50y o who presents for an annual exam. She had BRYANT for irregular/long bleeding episode in Nov. Periods not every month since, spotted most of May, then this month bled for 2 weeks but only one day was really heavy. She is wanting to treat this bleeding. last pap-05/2020 mammogram-unsure, 2 years? sexually active-yes, no problems contraception-salping ectomy seatbelts-y exercise-y depression-denies domestic violence-denies tobacco-n concerns- Jeannette Mijares MD [address], [place], [address], [facility] 09/15/2021 13:29:37 11/26/2021 text/html 51yo her e for preop HSC with ashvin ablation for menometrorrhagia. Had benign EMB in Jan of last year. WWE done in August of this year. Has not done her mammo yet- last 2+ years ago. She does note she had vaginal burning pain after her D and C years ago. Jeannette Mijares MD [address], [place], [address], [facility] 11/26/2021 14:01:09 OBGyn Episode Ob Episode Information Episode Created Date Number of Fetuses Patient Bloodtype Patient rh Status Prepregnancy Weight lbs Domestic Partner Domestic Partner Phone Father Name Rumper Status 05/28/19 21 1 CLOSED Fetus Data First Name Last Name Admitted to NICU Weight (g) Sex Living Outcome Pediatric Complications Fetus ID Race Codes Race Delivery Type 3628.73 6 F Full Term [id number] Primary Doug Calculation Initial Doug Date Initial Exam Date Initial Exam Provider Initial Ultrasound Date Last Menstrual Period Date Ultra Sound Weeks Gestation 0 Eighteen To Twenty Week Doug Update Ultra Sound Date Fundal Height At Umbil Quickening Date Ultra Sound Latest Weeks Gestation Final Doug Confirmed By Final Doug Confirmed Date Final Doug Date Ultra Sound Latest Days Gestation 0 0 Menstrual History Last Menstrual Date Menses Monthly On Bcp Conception Prior Menses Frequency Hcg Plus Date Menarche Onset Age Delivery Information Delivery Date Delivery Type Labor Anesthesia Weeks Gestation Incision Type Labor Labor Length Hrs Delivered By Post Complications Tubal Sterilization Discharge Date Comments 3 40 Discharge Information Feeding Method Contraceptive Method Maternal HG B and HCT Levels Ob Episode Information Episode Created Date Number of Fetuses Patient Bloodtype Patient rh Status Prepregnancy Weight lbs Domestic Partner Domestic Partner Phone Father Name Rumper Status 05/28/19 21 1 CLOSED Fetus Data First Name Last Name Admitted to NICU Weight (g) Sex Living Outcome Pediatric Complications Fetus ID Race Codes Race Delivery Type 3628.73 6 M Full Term [id number] Repeat Doug Calculation Initial Doug Date Initial Exam Date Initial Exam Provider Initial Ultrasound Date Last Menstrual Period Date Ultra Sound Weeks Gestation 0 Eighteen To Twenty Week Doug Update Ultra Sound Date Fundal Height At Umbil Quickening Date Ultra Sound Latest Weeks Gestation Final Doug Confirmed By Final Doug Confirmed Date Final Doug Date Ultra Sound Latest Days Gestation 0 0 Menstrual History Last Menstrual Date Menses Monthly On Bcp Conception Prior Menses Frequency Hcg Plus Date Menarche Onset Age Delivery Information Delivery Date Delivery Type Labor Anesthesia Weeks Gestation Incision Type Labor Labor Length Hrs Delivered By Post Complications Tubal Sterilization Discharge Date Comments 5 40 Discharge Information Feeding Method Contraceptive Method Maternal HG B and HCT Levels
--- OUTSIDE RECORDS SUMMARY | 2024-07-26 00:27 | XMS_ITS | Clinical Summary ---
Author Organization [facility] Address [address] [place] [address] Care Team Providers Care Hat Former Name Role Phone Unavailable Primary Care Provider Unavailabl e Source Comments [facility],non-owned Affiliates and Associated Physician Practices is amultiple site organization consisting of ambulatory clinics and hospital sitesin [place], [place], [place] and [place]. This disclosure is being madepursuant to the Care Everywhere program and may not contain all information available regarding this patient. Last updated 17.[facility] Allergies No known active allergies Medications * Be aware that medications may not be up to date on this document. Alwaysverify current medications with the patient. fluticasone propionate (FLONASE) 50 MCG/ACT nasal sprayIndication s:Acute pansinusitis, recurrence not specified [place] 2 Sprays into each nostril once daily 1 Bottle 06/28/2016 Active Social History Tobacco Use Types Packs/Day Years Used Date Smoking Tobacco: Never Comments No Sex and Gender Information Value Date Recorded Sex Assigned at Not on file Legal Sex Female 8:59 AM CDT Gender Identity Not on file Sexual Orientation Not on file Last Filed Vital Signs Vital Sign Reading Time Taken Comments Blood Pressure 118/82 06/28/2016 11:14 AM CDT Pulse 67 06/28/2016 11:14 AM CDT Temperature 36.6 C (97.9 F) 06/28/2016 11:14 AM CDT Respiratory Rate 16 06/28/2016 11:14 AM CDT Oxygen Saturation 99% 06/28/2016 11:14 AM CDT Inhaled Oxygen Concentration - - Weight 70.3 kg (155 lb) 06/28/2016 11:14 AM CDT Height 167.6 cm (5' 6) 06/28/2016 11:14 AM CDT Body Mass Index 25.02 06/28/2016 11:14 AM CDT Plan of Treatment Health Maintenance Due Date Last Done Comments COLOGUARD (AGES 45-75) - COL ON CA SCREENING 1972 COLON MONITORING 1972 COLONOSCOPY - COLON CA SCREENING 1972 CT COLONOGRAPHY - COLON CA SCREENING 1972 Colorectal Cancer Screening 1972 FIT - COLON CA SCREENING 1972 FLEX SIG - COLON CA SCREENING 1972 LIPID TESTING 1972 MAMMOGRAM 1972 HIV SCREENING 09/17/1987 HEPATITIS C SCREENING 09/12/1990 DTAP/TDAP/TD VACCINES (1 - Tdap) 09/17/1991 HEPATITIS B VACCINE (1 of 3 - 19+ 3-dose series) 09/17/1991 PNEUMOCOCCAL VACCINE 50+ (1 of 1 - PCV) 2022 ZOSTER VACCINE (1 of 2) 2022 COVID-19 VACCINE (1 - 2023-2 5 season) 2023 DEPRESSION SCREENING 03/20/2024 INFLUENZA VACCINE (Season Ended) 2024 HIB VACCINE Aged Out No longer eligi ble based on patient's age to complete this topic HPV VACCINE Aged Out No longer eligi ble based on patient's age to complete this topic MENINGOCOCCAL (Group B) VACC INE SHARED DECISION-MAKING Aged Out No longer eligibl e based on patient's age to complete this topic MENINGOCOCCAL GROUPS A/C/Y/W VACCINE Aged Out No longer eligible b ased on patient's age to complete this topic [place] [address] [address] [facility] [place] [address]
--- OUTSIDE RECORDS SUMMARY | 2024-07-26 00:27 | XMS_ITS | Clinical Summary ---
Author Organization [facility] Address [address] [place] [id number] Care Team Providers Care Brain Picker Name Role Phone Unavailable Primary Care Provider Unavailabl e Social History Tobacco Use Types Packs/Day Years Used Date Smoking Tobacco: Never Assessed Comments Unknown Sex and Gender Information Value Date Recorded Sex Assigned at Not on file Legal Sex Female 1:19 PM [employer] Gender Identity Not on file Sexual Orientation Not on file Plan of Treatment Health Maintenance Due Date Last Done Comments Cervical Cancer Screening Pa p Smear (Age 30 to 64) Every 3 Years 1972 Colorectal Cancer Screening Colonoscopy (10 Years) 1972 Annual Physical 09/17/1975 Hepatitis C 1990 DTaP, Tdap and Td Vaccines ( 1 - Tdap) 09/17/1991 Hepatitis B Vaccines (1 of 3 - 19+ 3-dose series) 09/17/1991 Cervical Cancer Screening Pa p with HPV Testing (Age 30 to 64) Every 5 Years 2002 Cervical Cancer Screening with HPV 2002 Mammogram Screening 2012 Pneumococcal Vaccine: 50+ Ye ars (1 of 1 - PCV) 2022 Zoster Vaccines (1 of 2) 2022 COVID-19 Vaccine ( - 2023-2 5 season) 2023 Meningococcal B Vaccine Aged Out No l onger eligible based on patient's age to complete this topic Meningococcal Vaccine Aged Out No ted ani eligible based on patient's age to complete this topic RSV Immunizations Under 20 Months Aged Out No longer eligible based on patient's age to complete this topic
--- NOTE | 2024-07-26 08:48 | SUR.PREOP ---
Patient called. Was unable to keep prep down. Patient wishes to reschedule. Transferred to office.
[2025-01-14 15:50] VITALS: BMI 27.5
--- OUTSIDE RECORDS SUMMARY | 2025-01-27 00:27 | XMS_ITS | Data Portability ---
Author Organization [facility] Address [address] [place] [address] Care Team Providers Care Medical Services Manager Name Role Phone ELIZABETH BRADLEY Primary Care Provider Assessment Encounter Date Assessment Date Assessment LastModified by Organization Details LastModified Time 02/10/2021 02/10/2021 EMB done, will call with results continue iron for anemia. DIscussed US results- no clear etiology of bleeding. likely anovulatory bleeding. if episodes continue, may discuss options of mirena vs ablation. would avoid estrogen with her relatively uncontrolled hypertension. [email or web address] Not available 02/10/2021 17:16:06 09/15/2021 09/15/2021 healthy [...] in office. FU 1 year or prn [email or web address] Not available 09/15/2021 13:27:33 11/26/2021 11/26/2021 Again discussed RBA of ablation, consented discussed procedure, recovery describes irritation of vagina after last procedure, did tolerate betadine at EMB. will irrigate vagina after procedure. strongly encouraged to schedule mammo [email or web address] Not available 11/26/2021 14:01:05 Plan of Treatment Reminders Order Date Submit Date Provider Last Modified By Organization Details Last Modified Time Details Appointments None recorded. Lab None recorded. Referral None recorded. Procedures None recorded. Surgeries hysteroscop y, with endometrial ablation (SURG) 2021 022 [facility] [place], [address], [place], [address], 14:19:00 Imaging US, pelvis 2020 [address], [address], [place], [address], 11:42:28 US, transvagina l [address], [address], [place], [address], 11:42:29 Medication Orders None recorded. Patient TargetsNo [...] prese nt for exami natio n. Elect kayleevinicius rodriguez by Osvaldo Carey MD on 02/12 [...] Gross ed by Giana jon Not Available [facility] (Lab) [address], [place], [address], 02/12/2021 15:37:05 02/02/20 21 02/01/2021 US, pelvi s No observ ation record ed. [email or web address] [place] [address], [place], [address], 02/01/2021 11:13:21 02/02/20 21 02/01/2021 US, trans madeleine al No observ ation record ed. [email or web address] [place] [address], [place], [address], 02/01/2021 11:13:10 02/02/20 21 02/01/2021 US, pelvi s No observ ation record ed. bernadette Ramos [address], [place], [address], 02/10/2021 19:06:57 Result Notes None recorded. Problems Name Problem SNOMED Code Status Onset Date Resolution Date Notes Provider Name and Address Organization Details Recorded Time Speciali zed medical examinat ion Completed 201005/27/2020 Routine gynecolo gical examinat ion;Prac luciana ID: 0001 Dasha Gary [facility] 15:41:34 Screenin g for malignan t neoplasm of cervix Completed 201005/27/2020 Pap Smear;Pr actice ID: 0001 Dasha Gary [facility] 15:41:19 Speciali zed medical examinat ion Completed 201112/08/2011 Gynecolo gical Examinat ion;Brennan rded Elsewher e: No Locat ion: [facility] S ource: EHR Mine Geologist mario alberto: N Practi ce ID: 0001 Max lable Time: 02:30:00 PM Dasha Gary [facility] 15:41:34 Screenin g for malignan t neoplasm of cervix Completed 201112/08/2011 Screenin g for malignan t neoplasm s of the cervix;R ecorded Elsewher e: No Locat ion: [facility] S ource: EHR Mine Geologist mario alberto: N Practi ce ID: 0001 Max lable Time: 02:30:00 PM Dasha tan [facility] 15:41:19 Menstrua tion finding Completed 201105/27/2020 Menorrha emma Excessiv e Menstrua tion;Pra ctice ID: 0001 Dasha Gary [facility] 15:40:52 Insertio n of intraute rine contrace ptive device Completed 201105/27/2020 INSERTIO N OF IUD;Prac luciana ID: 0001 Dasha tan, [facility] 15:40:50 Pregnanc y test negative [id number] Completed 201101/03/2012 Pregnanc y examinat ion or test, negative result;R ecorded Elsewher e: No Locat ion: [facility] S ource: EHR Mine Geologist mario alberto: N Practi ce ID: 0001 Max lable Time: 02:00:00 PM Dasha Gary [facility] 15:40:56 Dysfunct ional uterine bleeding Completed 201205/27/2020 Other disorder s of menstrua tion and other abnormal bleeding from female genital tract;Re corded Elsewher e: No Locat ion: [facility] S ource: [facility] Mine Geologist mario alberto: N Practi ce ID: 0001 Max lable Time: 08:15:00 [facility] 15:40:45 Pregnanc y test negative [id number] Completed 201205/27/2020 Negative Pregnanc y Test;Pra ctice ID: 0001 Dasha Gary [facility] 15:40:56 Anemia 239479291 Active 2012 Anemia, unspecif ied;Prac luciana ID: 0001 Not Available [facility] 0 17:25:14 Premenop ausal menorrha emma Completed 201205/27/2020 Premenop ausal menorrha emma;Prac luciana ID: 0001 Dasha Gary [facility], [facility] 15:41:16 Stenosis of cervix 05880343 Completed 201205/27/2020 Strictur e and stenosis of cervix;P ractice ID: 0001 Dasha tan, [facility] 15:41:31 Vaginiti s and vulvovag initis Completed 201205/27/2020 Vaginiti s and vulvovag initis, unspecif ied;Prac luciana ID: 0001 Dasha tan, [facility] 15:41:39 Adult health examinat ion Completed 201305/27/2020 ROUTINE MEDICAL EXAM;Rec orded Elsewher e: No Locat ion: [facility] S ource: EHR Mine Geologist mario alberto: N Practi ce ID: 0001 Max lable Time: 10:30:00 AM Dasha tan, [facility] 15:40:25 Alopecia [id number] Completed 201301/20/2021 Hair loss disorder ;Recorde d Elsewher e: No Locat ion: [facility] S ource: EHR Mine Geologist mario alberto: N Practi ce ID: 0001 Max lable Time: 10:30:00 AM Jeannette Mijares MD [address], [place], [address], [facility] 14:32:45 Urinary tract infectio us disease 00616287 Completed 201405/27/2020 Urinary tract infectio n, site not specifie d;Record ed Elsewher e: No Locat ion: [facility] S ource: EHR Mine Geologist maroi alberto: N Practi ce ID: 0001 Max lable Time: 01:15:00 PM Dasha tan, [facility] 15:41:38 Screenin g for malignan t neoplasm of rectum Completed 201505/27/2020 Encounte r for screenin g for malignan t neoplasm of rectum;R ecorded Elsewher e: No Locat ion: [facility] S ource: EHR Mine Geologist mario alberto: N Practi ce ID: 0001 Max lable Time: 09:45:00 AM Dasha tan [facility] 15:41:[address] Concept Completed 201505/27/2020 Anxiety disorder , unspecif ied;Brennan rded Elsewher e: No Locat ion: [facility] S ource: EHR Mine Geologist mario alberto: N Roxanneti ce ID: 0001 Max lable Time: 09:45:00 AM Dasha Gary dominick [facility] 1 15:41:[address] Concept Completed 201505/27/2020 Encntr for general adult medical exam w/o abnormal findings ;Recorde d Elsewher e: No Locat ion: [facility] S ource: EHR Mine Geologist mario alberto: N Roxanneti ce ID: 0001 Max lable Time: 09:45:00 AM Dasha Gary [facility] 15:41:25 Evaluati on finding Completed 201705/27/2020 Hematuri a, unspecif ied;Brennan rded Elsewher e: No Locat ion: [facility] S ource: EHR Mine Geologist mario alberto: N Roxanneti ce ID: 0001 Max lable Time: 10:30:00 AM Dasha Gary [facility] 15:40:[address] Concept Completed 201805/27/2020 Encntr for ob gyn exam (general ) (routine ) w/o abn findings ;Recorde d Elsewher e: No Locat ion: [facility] S ource: EHR Mine Geologist mario alberto: N Roxanneti ce ID: 0001 Max lable Time: 08:30:00 AM Dasha Gary dominick [facility] 1 15:41:27 Syphilis test finding 028998078 Completed 201805/27/2020 Encounte r for STD screenin g;Record ed Elsewher e: No Locat ion: Kurtis [facility]ain[facility] S ource: EHR Mine Geologist mario alberto: N Roxanneti ce ID: 0001 Max lable Time: 02:30:00 PM Dasha Gary [facility] 15:41:36 Anxiety 10207335 Active 2020 Dasha tan [facility] 15:41:49 Herpes simplex 21023261 Active 2020 Dasha tan [facility] 15:41:54 Problem Notes None recorded. Procedures Surgical History Date Name Laterality Status Provider Name and Address Organization Details Recorded Time 11/30/19 22 HYSTEROSCOPY, WITH ENDOMETRIAL ABLATION (SURG) completed Virginia Rodriguez [facility] 11/30/2021 10:58:48 09/14/19 22 Date of Last Colonoscopy completed Lexii Mei [facility] 09/15/2021 12:34:37 02/11/20 21 Endometrial Biopsy completed Jeannette Mijares MD [facility] [address], [place], [address], [facility] 02/10/2021 17:14:26 05/28/19 21 Date of Last Pap Smear completed Dasha Gary [facility] 05/27/2020 15:42:16 03/20/19 14 Knee arthroscopy/surg home completed Dashasilvestre Gary [facility] 05/27/2020 09:14:18 03/20/19 13 Hysteroscopy completed Dasha Gary [facility] 05/27/2020 09:13:47 10/21/19 05 section completed Dasha Gary [facility] 05/27/2020 15:45:40 03/20/19 05 ligation of bilateral fallopian tubes completed Dasha Gary [facility] 05/27/2020 09:13:26 05/05/19 03 section completed Dashasilvestre Gary [facility] 05/27/2020 15:45:51 Imaging Results None recorded. Procedure Notes None recorded. Medical Equipment None [...] Prescrib ed Elsewher e: No Locat ion: [facility] [address] odify By: elly Pool er DateTime : 01/09/20 13 11:35:02 AM Not Available Not Available Not Available Macrobid 100 mg capsule take 1 capsule by oral route every 12 hours with food 06/08 completed Prescrib ed Elsewher e: No Locat ion: [facility] [address] odify By: jamie Lai r DateTime : 02/05/20 15 01:15:00 PM Not Available Not Available Not Available terbinafi ne HCl 250 mg tablet TK 1 T PO D 05/27 completed Not Available Not Available Not Available Zoloft 50 mg tablet take 1 tablet by oral route every day 06/08 completed Prescrib ed Elsewher e: No Locat ion: [facility] odify By: jamie Martinezte r DateTime : 02/05/20 15 01:15:00 PM Not Available Not Available Not Available Prozac 20 mg capsule take 1 capsule (20MG) by oral route every day in the morning 02/20 completed Prescrib ed Elsewher e: No Locat ion: [facility] odify By: citlaly crane DateTime : 02/21/20 13 09:32:49 AM Not Available Not Available Not Available Cipro 500 mg tablet take 1 tablet by oral route every 12 hours 06/08 completed Prescrib ed Elsewher e: No Locat ion: [facility] odify By: jamie hung DateTime : 07/04/19 18 10:30:00 AM Not Available Not Available Not Available buspirone 7.5 mg tablet take 1 tablet by oral route 2 times every day 05/27 completed Prescrib ed Elsewher e: No Locat ion: [facility] [address] odify By: josue Luevano untlizz DateTime : 06/09/19 19 08:30:00 AM Not Available Not Available Not Available hydroxyzi ne HCl 25 mg tablet TAKE 1 TABLET BY MOUTH TWICE DAILY NEEDED FOR NAUSEA OR VOMITING 09/15 completed Not Available Not Available Not Available Paxil 10 mg tablet take 1 tablet by oral route every day 02/20 completed Prescrib ed Elsewher e: No Locat ion: [facility] odify By: kristina swiftuntlizz DateTime : 02/20/20 13 01:30:00 PM Not Available Not Available Not Available multivita min capsule take 1 capsule by oral route every day 05/27 completed Prescrib ed Elsewher e: Yes Loca tion: [facility] [address] odify By: citlaly crane DateTime : 02/21/20 14 10:30:00 AM Not Available Not Available Not Available Poly-Iron 150 mg iron capsule TAKE 1 CAPSULE BY MOUTH EVERY DAY 09/15 completed Not Available Not Available Not Available June FE 04/08 (28) 1 mg-20 mcg (21)/75 mg (7) tablet 05/27 completed Not Available Not Available Not Available hydroxyzi ne HCl 05/27 completed Not Available Not Available Not Available Lysteda 650 mg tablet take 2 tablet (1300MG) by oral route 3 times every day during menses 02/20 completed Prescrib ed Elsewher e: No Locat ion: Kurtis alaina [facility] odify By: citlaly crane DateTime : 08/08/19 13 10:00:00 AM Not Available Not Available Not Available Linzess 290 mcg capsule TAKE 1 CAPSULE BY MOUTH DAILY 09/15 completed Not Available Not Available Not Available biotin 1 mg capsule 09/15 completed Prescrib ed Elsewher e: Yes Loca tion: [facility] M odify By: citlaly crane DateTime : 02/21/20 10:30:00 AM Not Available Not Available Not Available BinaxNOW COVID-19 Ag Self Test kit TEST DIRECTED 09/15 completed Not Available Not Available Not Available Vitals Date Recorded Body height Body mass index (BMI) Body weight Systolic And Diastolic Provider Name and Address Organization Details Last Updated DateTime 09/15/2021 166.37 cm 25.1 kg/m2 75874.63 g 114/76 mm[Hg] [facility] 09/15/2021 12:33:42 Date Recorded Body height Body mass index (BMI) Body weight Systolic And Diastolic Provider Name and Address Organization Details Last Updated DateTime 11/26/2021 166.37 cm 24.6 kg/m2 43024.86 g 138/88 mm[Hg] [facility] 11/26/2021 10:31:02 Date Recorded Body height Body mass index (BMI) Body weight Systolic And Diastolic Systolic And Diastolic Provider Name and Address Organization Details Last Updated DateTime 02/10/2021 166.37 cm 26.5 kg/m2 42968.96 g 150/90 mm[Hg] 138/80 mm[Hg] [facility] 14:52:37 Social History Question Answer Notes LastModified by Organizat ion Details LastModified Time Do You Have An Advance Directive? No [email or web address] Information n ot available 05/27/2020 If You Are , What Was Your Level Of Alcohol Consumption Prior To ? None [email or web address] Information not available 11/26/2021 How Many Years Have You Consumed Alcohol? 25 [email or web address] Information not available 05/27/2020 Are You Blind Or Do You Have Difficulty Seeing? No [email or web address] Information n ot available 05/27/2020 What Is Your Level Of Caffeine Consumption? Occasional [email or web address] Information not available 05/27/2020 In The 14 Days Before Symptom Onset, Have You Had Close Contact With A Laboratory-confirm ed COVID-19 While That Case Was Ill? No [email or web address] Information n ot available 05/27/2020 In The 14 Days Before Symptom Onset, Have You Had Close Contact With A Person Who Is Under Investigation For COVID-19 While That Person Was Ill? No [email or web address] Information not available 05/27/2020 Have You Been To An Area Known To Be High Risk For COVID-19? No [email or web address] Information not available 05/27/2020 Are You Deaf Or Do You Have Serious Difficulty Hearing? No [email or web address] Information not available 05/27/2020 What Type Of Diet Are You Following? REGULAR [email or web address] Information n ot available 05/27/2020 What Is The Highest Grade Or Level Of School You Have Completed Or The Highest Degree You Have Received? MB68523-8 [email or web address] Information not available 05/27/2020 Are There Any Guns Present In Your Home? No Information not available 05/27/2020 Have You Ever Been Counseled For Unhealthy Alcohol Use? No [email or web address] Information not available 11/26/2021 Do You Use Protection During Sex? No [email or web address] Information not available 05/27/2020 Do You Use Your Seat Belt Or Car Seat Routinely? Yes Information not available 05/27/2020 Do You Have Smoke And Carbon Monoxide Detectors In Your Home? Yes [email or web address] Information not available 05/27/2020 How Much Tobacco Do You Smoke? No [email or web address] Information not available 05/27/2020 Do You Use Sunscreen Routinely? No [email or web address] Information not available 05/27/2020 Has Tobacco Cessation Counseling Been Provided? No [email or web address] Information not available 11/26/2021 Have You Used IV Drugs? No [email or web address] Information not available 05/27/2020 Sex: Unknown Functional Status Question Answer Note LastModified by Organizat ion Details LastModified Time Do you use any illicit or recreational drugs? No [email or web address] Information not available 05/27/2020 Do you or have you ever used any other forms of tobacco or nicotine? No Information not available 11/26/2021 What is your level of alcohol consumption? Occasional [email or web address] Information not available 05/27/2020 Are you able to walk independently without assistance or assistive devices? 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 Occasional [email or web address] Information not available 05/27/2020 Mental Status Question Answer Note LastModified by Organization D etails LastModified Time Do you feel stressed (tense, restless, nervous, or anxious, or unable to sleep at night)? AA20179-8 [email or web address] Information not available 05/27/2020 Family History Relationship Description Onset Age of this Age Resolved Age Notes LastModified by Organization Details LastModified Time Paternal Grandfather Diabetes mellitus [email or web address] Not available 05/27 09:12:16 Paternal Grandfather Alcoholism [email or web address] Not available 0 11/26/2021 10:25:13 Mother Back problem [email or web address] Not avai lable 11/26/2021 10:25:13 Notes:Mother: back problems Paternal grandfather: Alcoholism Paternal grandmother: Diabetes mellitus Medical History Condition Response Dermatologic Disorders Y History of STI Y Anxiety Disorder Y Anemia Y Gynecological History Statement/Question Response Date of [...] Diagnosis SNOMED-CT Code Diagnosis ICD10 Code Diagnosis IMO Codes Diagnosis Note [id number] Linda Smith CNM [place] [address] [address] 05/27/2020 15:24:05 05/27/2020 16:28:59 Gynecologic examination 72239177 Z01.419 [id number] MD Ross Lopez [address],[place] [address] 01/20/2021 14:19:33 01/22/2021 12:01:33 Menometrorrhagia 432957096 N92.1 Anemia 322301024 D64.9 Essential hypertension 07519460 I10 [id number] MD Ross Lopez [address],[place] [address] 02/01/2021 10:26:54 02/01/2021 11:42:28 Menometrorrhagia 407322564 N92.1 [id number] MD Ross Lopez [address],[place] [address] 02/10/2021 14:26:32 02/15/2021 13:13:39 Menometrorrhagia 077132092 N92.1 Anemia due to chronic blood loss 190696887 D50.0 [id number] MD Ross Lopez [address],[place] [address] 09/15/2021 12:25:17 09/15/2021 14:06:37 Gynecologic examination 25707953 Z01.419 Menometrorrhagia 0304825 08 N92.1 [id number] MD Ross Lopez [address],[place] [address] 11/26/2021 10:25:00 11/26/2021 14:11:09 Menometrorrhagia 377717441 N92.1 Preoperative state 70296 002 Z78.9 [id number] MD Ross Lopez [address],[place] [address] 11/30/2021 10:25:36 11/30/2021 10:28:03 Health Concerns Section Related Observation LastModified by Organization Detai ls LastModified Time None Recorded Concern Status LastModified by Organization Details LastModified Time None Recorded Advance Directives Directive N: Payers Insurance Date Sequence Insurance Name Policy Number Policy Tracy Covered Member ID Tracy Member ID Guarantor Name 04/26/2022 1 [facility] [id number] Dimitrios Galicia [id number] Masha Ba Frida Notes Date Note Type Note Provider Name and Address Organization Details Recorded Time 02/10/2021 text/html Here for FU menometrorrhagia and anemia. ON iron. PCP records reviewed- Hgb was 9.7. US showed heterogeneous uterus, normal ovaries. EE only 5mm. No further long episodes of bleeding. Jeannette Mijares MD [address], [place], [address], [facility] 02/10/2021 17:16:23 09/15/2021 text/html Patient is a 50yo who presents for an annual exam. She had BRYANT for irregular/long bleeding episode in Jan. Periods not every month since, spotted most of May, then this month bled for 2 weeks but only one day was really heavy. She is wanting to treat this bleeding. last pap-05/2020 mammogram-unsure, 2 years? sexually active-yes, no problems contraception-salping ectomy seatbelts-y exercise-y depression-denies domestic violence-denies tobacco-n concerns- Jeannette Mijares MD [address], [place], [address], [facility] 09/15/2021 13:29:37 11/26/2021 text/html 51yo here for preop HSC with ashvin ablation for menometrorrhagia. Had benign EMB in Jan of last year. WWE done in August of this year. Has not done her mammo yet- last 2+ years ago. She does note she had vaginal burning pain after her D and C years ago. Jeannette Mijares MD [address], [place], [address], [facility] 11/26/2021 14:01:09 OBGyn Episode Ob Episode Information Episode Created Date Number of Fetuses Patient Bloodtype Patient rh Status Prepregnancy Weight lbs Domestic Partner Domestic Partner Phone Father Name Graphic Design Specialist Status 05/28/19 21 1 CLOSED Fetus Data [...] Domestic Partner Domestic Partner Phone Father Name Graphic Design Specialist Status 05/28/19 21 1 CLOSED Fetus Data [...]
--- OUTSIDE RECORDS SUMMARY | 2025-01-27 00:27 | XMS_ITS | Clinical Summary ---
Author Organization [facility] Address [address] [place] [address] Care Team Providers Care Sales Representatives Name Role Phone Unavailable Primary Care Provider Unavailabl e Source Comments [facility],non-owned Affiliates and Associated Physician Practices is amultiple site organization consisting of ambulatory clinics and hospital sitesin [place], [place], [place] and [place]. This disclosure is being madepursuant to the Care Everywhere program and may not contain all information available regarding this patient. Last updated 17.[facility] Allergies No known active allergies Medications * Be aware that medications may not be up to date on this document. Alwaysverify current medications with the patient. fluticasone propionate (FLONASE) 50 MCG/ACT nasal sprayIndication s:Acute pansinusitis, recurrence not specified [place] 2 Sprays into each nostril once daily [...] 2022 ZOSTER VACCINE (1 of 2) 2022 DEPRESSION SCREENING 03/20/2024 COVID-19 VACCINE (1 - 2023-2 5 season) 2024 INFLUENZA VACCINE (#1) 2024 HIB VACCINE Aged Out No longer [...] patient's age to complete this topic Insurance [place] [address] [place] [address]
--- OUTSIDE RECORDS SUMMARY | 2025-01-27 00:27 | XMS_ITS | Clinical Summary ---
Author Organization [facility] Address [address] [place] [address] Care Team Providers Care Knockout Machine Operator Name Role Phone Unavailable Primary Care Provider Unavailabl e Social History Tobacco Use Types Packs/Day Years Used Date Smoking Tobacco: Never Assessed Comments Unknown Sex and Gender Information Value Date Recorded Sex Assigned at Not on file Legal Sex Female 1:19 PM [employer] Gender Identity Not on file Sexual Orientation [...] of 2) 2022 COVID-19 Vaccine ( - 2024-2 6 season) 2024 Influenza Adult (#1) 2024 Hepatitis A Vaccines Aged Out No long er eligible based on patient's age to complete this topic Meningococcal B Vaccine Aged Out No l onger eligible based on patient's age to complete this topic Meningococcal Vaccine Aged Out No ted ani eligible based on patient's age to complete this topic RSV Immunizations Under 20 Months Aged Out No longer eligible based on patient's age to complete this topic
[2025-01-27 07:47] VITALS: BP 130/97; PULSE 84; RESP 20; TEMP 36.1; O2SAT 100; BMI 27.8
--- NOTE | 2025-01-27 07:54 | WPDANESEPPF ---
Anes - Initial Pre Proc Eval Procedure: Operation Date: 01/27/25 09:00 Proposed Procedures p Screening Colonoscopy - José Luis Soliz MD Date/Time: 01/27/25 07:54 Surgeon: José Luis Soliz MD Pre Op Diagnosis: Screening Patient Data Age: 54 Gender: F Height: 1.52 m Weight: 64.6 kg Last Vital Signs Temp 36.1 C L 01/27/25 07:47 Pulse 84 01/27/25 07:47 Resp 20 01/27/25 07:47 BP 130/97 H 01/27/25 07:47 Pulse Ox 100 01/27/25 07:47 O2 Del Method Room Air 01/27/25 07:47 Allergies Allergy/AdvReac Type Severity Reaction Status Date / Time No Known Allergies Allergy Verified 01/27/25 07:46 Home Medications ?Medication ?Instructions ?Recorded ?Confirmed ?Type biotin 1,000 mcg chewable tablet 1,000 mcg PO DAILY 09/01/21 01/27/25 History multivitamin with minerals-folic 1 tablet PO DAILY 09/01/21 01/27/25 History acid 0.4 mg tablet cholecalciferol (vitamin D3) 25 25 mcg PO DAILY #90 caps 06/13/24 01/27/25 Rx mcg (1,000 unit) capsule sodium sul 1.479 gram-potas ch See Rx Instructions PO PER PKG DIR 07/26/24 01/27/25 Rx 0.188 gram-magnes sul 0.225 gram #24 tabs tablet (Sutab) propranolol 40 mg tablet 40 mg PO Q12H #60 tabs 11/24/24 01/27/25 Rx Patient hx anesthesia problems: none Family hx anesthesia problems: none Results Review: All pre-operative results and documents have been reviewed as part of the pre-operative evaluation. [facility] Past Medical History Medical History Body mass index [BMI] 26.0-26.9, adult (07/13/16) Chronic GERD Discoloration of skin of toe Dysfunction of both eustachian tubes DONOVAN (generalized anxiety disorder) History of alcohol abuse Impacted cerumen of right ear MDD (major depressive disorder), recurrent episode, moderate Menometrorrhagia Mood swings Nausea Night sweats RUQ abdominal pain [place] Sleep apnea Tinnitus Depression Surgical History Surgical History S/P PAULETTE-BSO H/O tubal ligation History of hysteroscopy for heavy vaginal bleeding History of gynecological procedure (11/29/21) endomtrial ablation History of section H/O colonoscopy H/O arthroscopic knee surgery Family History Family History Grandparent Family history of throat cancer Other Family history of Alzheimer's disease Social History Social History Social History: Smoking packs per day: 1 Smoking cigarettes per day: 20.0 Years smoked: 15 Smoking pack-years: 15.00 Smoking status: Former smoker Tobacco type: cigarettes and e-cigarettes/vaping Second hand tobacco smoke exposure: No Smoking end date: 11/26/13 Additional smoking assessment comments: Vapes Alcohol intake: current Drinks per week: 2 Substance use: never Substance use type: does not use Lack of Transportation: No Lack of Food: Never True Current Housing: I Have Housing Concerned About Future Housing: No Difficulty Paying Gas/Electric Bills: No Difficulty Paying for Meds: No Currently Unemployed: No Education: Bachelor's Degree Difficulty w/ Childcare or Family Care: No Living arrangements: with family Occupation/Education: occupation Gender identity (if verbalized by the patient): Female Sexual Orientation (if Verbalized by the Patient): Straight or Heterosexual Anes - Eval Final PreProcedure Day of Procedure 01/27/25 07:54 Patient weight: overweight Heart: regular rate and rhythm Lungs: clear to auscultation Airway: Mallampati scale class II Neurological: alert and oriented Last oral intake: >/= 8 hours ASA classification: III Emergent: no Anesthetic plan: proceed Anesthesia type and monitoring: general GIVS and standard monitoring Results Review: All pre-operative results and documents have been reviewed as part of the pre-operative evaluation. Informed Consent: The patient's anesthetic plan and its attendant risks and benefits were discussed with the patient/family/POA. Questions were solicited and answers provided to the satisfaction of the patient/family/POA.
[2025-01-27] MEDS: LACTATED RINGERS 1,000 ML 150 ML IV CONT (08:01)
--- NOTE | 2025-01-27 08:39 | PM.HPGS ---
History of Present Illness History of Present Illness Consent: Risks, benefits, and alternatives have been discussed and questions answered. Patient agrees to proceed with procedure. Chief complaint: Screening Narrative: Masha Galicia is a 54 year old female with colon polyp in 2021 Review of Systems Review of Systems: All systems reviewed & are unremarkable except as noted in HPI and below PMFSH Past Medical History Medical History Body mass index [BMI] 26.0-26.9, adult (07/13/16) Chronic GERD Discoloration of skin of toe Dysfunction of both eustachian tubes DONOVAN (generalized anxiety disorder) History of alcohol abuse Impacted cerumen of right ear MDD (major depressive disorder), recurrent episode, moderate Menometrorrhagia Mood swings Nausea Night sweats RUQ abdominal pain [place] Sleep apnea Tinnitus Depression Surgical History Surgical History S/P PAULETTE-BSO H/O tubal ligation History of hysteroscopy for heavy vaginal bleeding History of gynecological procedure (11/29/21) endomtrial ablation History of section H/O colonoscopy H/O arthroscopic knee surgery Family History Family History Grandparent Family history of throat cancer Other Family history of Alzheimer's disease Social History Social History Social History: Smoking packs per day: 1 Smoking cigarettes per day: 20.0 Years smoked: 15 Smoking pack-years: 15.00 Smoking status: Former smoker Tobacco type: cigarettes and e-cigarettes/vaping Second hand tobacco smoke exposure: No Smoking end date: 11/26/13 Additional smoking assessment comments: Vapes Alcohol intake: current Drinks per week: 2 Substance use: never Substance use type: does not use Lack of Transportation: No Lack of Food: Never True Current Housing: I Have Housing Concerned About Future Housing: No Difficulty Paying Gas/Electric Bills: No Difficulty Paying for Meds: No Currently Unemployed: No Education: Bachelor's Degree Difficulty w/ Childcare or Family Care: No Living arrangements: with family Occupation/Education: occupation Gender identity (if verbalized by the patient): Female Sexual Orientation (if Verbalized by the Patient): Straight or Heterosexual Meds Home Medications and Allergies Home Medications ?Medication ?Instructions ?Recorded ?Confirmed ?Type biotin 1,000 mcg chewable tablet 1,000 mcg PO DAILY 09/01/21 01/27/25 History multivitamin with minerals-folic 1 tablet PO DAILY 09/01/21 01/27/25 History acid 0.4 mg tablet cholecalciferol (vitamin D3) 25 25 mcg PO DAILY #90 caps 06/13/24 01/27/25 Rx mcg (1,000 unit) capsule sodium sul 1.479 gram-potas ch See Rx Instructions PO PER PKG DIR 07/26/24 01/27/25 Rx 0.188 gram-magnes sul 0.225 gram #24 tabs tablet (Sutab) propranolol 40 mg tablet 40 mg PO Q12H #60 tabs 11/24/24 01/27/25 Rx Allergies Allergy/AdvReac Type Severity Reaction Status Date / Time No Known Allergies Allergy Verified 01/27/25 07:46 Vital Signs Vital Signs - 24 hr 01/27/25 07:47 Temperature 96.9 F L Pulse Rate 84 Respiratory Rate 20 Blood Pressure 130/97 H Pulse Oximetry 100 Oxygen Delivery Room Air Exam Const: General: comfortable and no acute distress HENMT: Face/Nose/Sinus: Normal nares present Eyes: General: appearance normal, both eyes and all related structures Neck: Neck: no JVD Resp: Auscultation: clear to auscultation bilaterally Cardio: Rate: regular rate Rhythm: regular rhythm GI: Inspection: non-distended GI Palp: Yes Soft to palpation Skin: General skin exam: normal color Extrem: General: normal to inspection Psych: Mental Status: mental status grossly normal Assessment and Plan Assessment and plan (1) Colon polyps: Qualifiers: Colon polyp type: adenomatous Colon location: transverse Qualified Code(s): D12.3 - Benign neoplasm of transverse colon Code(s): K63.5 - Polyp of colon Status: Acute Assessment and Plan: colonoscopy
[2025-01-27 08:52] VITALS: BP 127/76; PULSE 80; RESP 19; O2SAT 100
--- NOTE | 2025-01-27 08:53 | S_PTH ---
PATIENT: Masha Galicia LOC: [facility] Mak#:[id number] AGE/SX: 54/F ROOM: RE01/27/[address]: José Luis Soliz MD : 1970 BED: DIS: 01/27/2025 SPEC #: [id number] RECD: 01/27/25 09:39 STATUS: TERESITA REQ #: [id number] STACEY: 01/27/25 08:[address]: José Luis Soliz DEPT: [facility] Surgical RECD BY: Claudia Monterroso ENTERED: 01/27/25 09:40 SP TYPE: Surgical OTHR DR: Garrick Guerrero MD Tissues: A - Colon Polypectomy Procedures: Hematoxylin and Eosin Stain Gross and Microscopic Level 4
[2025-01-27 09:02] VITALS: BP 110/59; PULSE 70; RESP 19; O2SAT 100
[2025-01-27 09:12] VITALS: BP 137/62; PULSE 65; RESP 18; O2SAT 100
== END 2025-01-27 09:19 | disposition home or self-care (01) ==
PROVIDERS: PCP Family Medicine; Referring Provider Physician Assistant; Visit Provider Internal Medicine Gastroenterology
PROC: 0DJD8ZZ Inspection of Lower Intestinal Tract, Via Natural or Artificial Opening Endoscopic (ICD-10-PCS; CPT 45378; principal; 2025-01-27 09:00)
DX: Z12.11 Encounter for screening for malignant neoplasm of colon (principal); K63.5 Polyp of colon; Z87.891 Personal history of nicotine dependence
CPT/HCPCS: 45385; 88305; J2704; J7120